=== PATIENT | female | born 1955 | race African-American/Black ===

== ENCOUNTER 2018-12-01 12:50 | Outpatient (CLI) | payer MEDICAID ==
[~2018-12-01] VITALS: Ht 167.6 cm; Wt 116.6 kg
[2018-12-01 13:10] VITALS: BP 112/83
--- NOTE | 2018-12-01 16:00 | Consultation ---
DATE OF CONSULTATION: 12/01/2018 CONSULTING PHYSICIAN: Cricket Romero M.D. CHIEF COMPLAINT: Referral for screening colonoscopy. PAST MEDICAL HISTORY: Hypertension. PAST SURGICAL HISTORY: Hernia repair. MEDICATIONS: She is taking lisinopril. FAMILY HISTORY: Daughter had breast cancer. SOCIAL HISTORY: The patient denies any alcohol, but smokes. Denies any IV drug abuse. ALLERGIES: No known drug allergies. REVIEW OF SYSTEMS: A 10-point review of systems was performed and was positive for some rectal pulsation. PHYSICAL EXAMINATION: VITAL SIGNS: Temperature 98.2, blood pressure is 110/83, pulse is 70, respirations 20. HEENT: Normocephalic and atraumatic. Sclerae anicteric. NECK: Supple. No evidence of lymphadenopathy. CARDIOVASCULAR: Regular rate and rhythm. Plus S1 and S2. No obvious murmur. LUNGS: Clear to auscultation bilaterally. ABDOMEN: Positive bowel sounds. Soft and nontender. No rebound. No guarding. No peritoneal sign. EXTREMITIES: No cyanosis, no clubbing, no edema. ASSESSMENT AND PLAN: This is a 63-year-old female with past medical history of colonoscopy going to about few years ago. She is not exactly sure what was the finding. We do not have the report of it, possibly had some polyps, possibly had some hemorrhoids. rectal pain, rectal pulsation, and apparently was referred by Primary for repeat colonoscopy. The patient was given instruction for colonoscopy. Risks and benefits of procedure was informed to her that. We are going to go ahead and schedule her as soon as authorization is obtained. Cricket Romero M.D. DR: GURPREET JOB#: [id number] CC:
[2018-12-01] MEDS ORDERED: LISINOPRIL-HCT1 EAC2 ORAL (17:11)
== END 2018-12-01 16:01 | disposition home or self-care (01) ==
LOC: PAN 12:50
DX: Z01.818 Encounter for other preprocedural examination (principal); I10 Essential (primary) hypertension; Z79.899 Other long term (current) drug therapy
CPT/HCPCS: 99202

== ENCOUNTER 2019-04-05 14:02 | Outpatient (CLI) | payer MEDICAID ==
[~2019-04-05 14:02] MED LIST: LISINOPRIL-HCT1 EAC2 ORAL
[2019-04-05 14:20] VITALS: BP 145/98
--- NOTE | 2019-04-05 14:36 | General Progress Note ---
Assessment/Plan Assessment/Plan: poor colon prep diverticulosis needs repeat colonoscopy Subjective ROS Limited/Unobtainable: Yes Allergies: Coded Allergies: No Known Allergies (Unverified , 12/01/18) Objective General Appearance: alert EENT: normal ENT inspection Neck: supple Cardiovascular: normal rate Respiratory/Chest: decreased breath sounds Abdomen: normal bowel sounds, non tender, soft Extremities: normal range of motion, non-tender Cricket Romero MD Apr 05, 2019 14:36
== END 2019-04-05 16:02 | disposition home or self-care (01) ==
LOC: PAN 14:02
DX: K57.90 Diverticulosis of intestine, part unspecified, without perforation or abscess without bleeding (principal)
CPT/HCPCS: 99212